=== PATIENT | female | born 1965 | race Caucasian/White ===

== ENCOUNTER 2016-10-18 20:37 | Observation (INO) ==
--- NOTE | 2016-10-18 21:40 | Emergency Department Note ---
Disposition Clinical Impression: Bradycardia Disposition: Admitted As Inpatient Referrals: Unassigned,Provider [Non-Partnered Physician] - Forms: ED Satisfaction Letter Extremity Problem HPI - General Chief complaint: ED Extremity Problem,Nontraumatic Stated complaint: blood clot// Right arm pain Time Seen by Provider: 10/18/16 20:55 Source: patient Limitations: no limitations Nursing Notes Reviewed: Yes Vital Signs Reviewed: Yes - History of Present Illness HPI Narrative: Patient presents with left arm pain. Patient states she was seen at an outside hospital and told that she had a blood clot to elevated d-dimer. Patient is already on Lovenox and so the hospital not see the need to do an ultrasound at time as if patient had a DVT she is already on treatment for that. Patient continues her pain but the family member also noted the patient a fall and her pain did start after that. Patient is unsure if the pain started around afterwards or some other things going on. Patient denies chest pain patient did have some flutter in her head yesterday but that since resolved. Pain Scale: 0 - Related Data Home Medications Medication Instructions Recorded Confirmed Butorphanol Tartrate 10 mg NS BID 09/12/15 05/17/16 Nitroglycerin [Nitrostat] 0.4 mg SL Q5-10MIN PRN 11/27/15 05/17/16 Levothyroxine Sodium [Synthroid] 100 mcg IV DAILY 01/17/16 05/17/16 Previous Rx's Medication Instructions Recorded AcetaZOLAMIDE [Diamox Sequels] 500 mg IV Q12H 30 Days 11/05/15 DiphenhydraMINE [Benadryl] 50 mg IV Q6H 30 Days 11/28/15 Pantoprazole Sodium [Protonix IV] 40 mg IV DAILY 30 Days 11/28/15 CloNIDine Patch [Catapres-Tts] 0.3 mg TD QWEEK #6 patch.tdwk 01/30/16 Ondansetron ODT [Zofran ODT] 4 mg SL Q4HR PRN #7 tab.rapdis 03/17/16 Allergies Allergy/AdvReac Type Severity Reaction Status Date / Time levofloxacin Allergy Intermediate rash, Verified 09/22/16 13:21 itching, redness ceftriaxone [From Rocephin] Allergy Anaphylaxis Verified 09/22/16 13:21 Hydralazine Allergy Hives Verified 09/22/16 13:21 Iodinated Contrast Media - Allergy Hives Verified 09/22/16 13:21 Oral and [Iodinated Contrast Media - IV Dye] ketorolac [From Toradol] Allergy Gastrointestinal Verified 09/22/16 13:21 Upset metoclopramide [From Reglan] Allergy Hives Verified 09/22/16 13:21 midazolam [From Versed] Allergy Agitated Verified 09/22/16 13:21 povidone-iodine Allergy Hives Verified 09/22/16 13:21 [From Betadine] prochlorperazine Allergy Hives Verified 09/22/16 13:21 [From Compazine] soap [From Betadine] Allergy Hives Verified 09/22/16 13:21 Trimethobenzamide Allergy Hives Verified 09/22/16 13:21 [From Tigan] All systems ED: reviewed and negative except as stated. 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 history - Social History Smoking Status: Former smoker Smokeless Tobacco Status: Yes Alcohol use: Reports: none Drug use: Reports: none Physical Exam - General Limitations: no limitations General appearance: alert, in no apparent distress - Head Head exam: atraumatic, normocephalic, normal inspection - Eye Eye exam: Present: normal appearance, PERRL, EOMI - ENT ENT exam: normal exam, normal oropharynx, mucous membranes moist - Neck Neck exam: Present: normal inspection, full ROM, trachea midline - Chest Chest inspection: Present: normal inspection, symmetric chest wall rise - Respiratory Respiratory exam: Present: normal lung sounds bilaterally - Cardiovascular Cardiovascular exam: Present: regular rate, normal rhythm, normal heart sounds - Abdominal Exam Abdominal exam: Present: soft, Non-Tender. Absent: tenderness, distention, guarding, rebound, rigidity - Extremities Exam Extremities exam: Present: other (Left anterior shoulder tenderness to palpation. No gross deformity noted.) - Back Exam Back exam: Present: normal inspection, full ROM. Absent: tenderness - Neurological Exam Neurological exam: Present: alert, oriented X3 - Psychiatric Psychiatric exam: Present: normal affect, normal mood - Skin Skin exam: Present: warm, dry, intact, normal color Course Vital Signs Temperature 98 F 10/18/16 20:45 Pulse Rate 54 10/18/16 20:45 Respiratory Rate 20 10/18/16 20:45 Blood Pressure 101/70 10/18/16 20:45 O2 Sat by Pulse Oximetry 98 10/18/16 20:45 Temperature 98 F 10/18/16 20:45 Pulse Rate 53 10/18/16 23:44 Respiratory Rate 18 10/18/16 23:44 Blood Pressure 123/77 10/18/16 23:44 O2 Sat by Pulse Oximetry 96 10/18/16 23:44 Oxygen Delivery Oxygen Delivery Room Air Extremity Problem, Nontraumati - Differential Diagnosis Likely: cellulitis, superficial thrombophlebitis, deep venous thrombosis, lower extremity edema, compartment syndrome, septic joint - Lab Data Lab results reviewed: Yes I reviewed the patient's lab results. Result diagrams: 10/18/16 22:22 10/18/16 22:22 Lab Results 10/18/16 10/18/16 10/18/16 Range/Units 22:06 22:22 22:22 WBC 6.2 (4.3-11.1) K/mcL RBC 4.23 (3.82-4.97) M/mcL Hgb 12.1 (11.5-15.4) g/dL Hct 35.1 L (35.3-44.9) % MCV 83.0 (83.0-100.0) fL MCH 28.6 (28.0-33.3) pg MCHC 34.5 (31.6-35.5) g/dL RDW 13.8 (11.5-14.5) % Plt Count 248 (140-400) K/mcL MPV 10.9 (9.4-12.4) fL Immature Gran % 0.2 (0-4) % Seg Neutrophils % 40.2 % Lymphocytes % 42.9 % Monocytes % 6.8 % Eosinophils % 9.6 % Basophils % 0.3 % Neutrophils # 2.5 (1.6-8.9) K/mcL Lymphocytes # 2.7 (0.6-4.6) K/mcL Monocytes # 0.4 (0.0-1.3) K/mcL Eosinophils # 0.6 (0.0-0.6) K/mcL Basophils # 0.0 (0.0-0.2) K/mcL APTT 58.7 H (26.0-36.0) Seconds Sodium (136-145) mEq/L Potassium (3.5-4.5) mEq/L Chloride (98-109) mEq/L Carbon Dioxide (19-29) mEq/L BUN (7-20) mg/dL Creatinine (0.57-1.11) mg/dL Est GFR ( Amer) (> 60) Est GFR (Non-Af Amer) (> 60) BUN/Creatinine Ratio (6-26) Glucose (70-99) mg/dL Calculated Osmolality (280-300) Lactic Acid (0.5-2.2) mmol/L Calcium (8.6-10.8) mg/dL Total Bilirubin (0.2-1.2) mg/dL AST (5-34) Units/L ALT (0-55) Units/L Alkaline Phosphatase (38-126) Units/L Troponin I (0-0.03) ng/mL Serum Total Protein (6.0-8.3) g/dL Albumin (3.5-5.0) g/dL Globulin (2.4-3.5) g/dL Albumin/Globulin Ratio (1.1-2.2) Urine Color Yellow (Yellow) Urine Clarity Hazy A (Clear) Urine pH 6.0 (5.0-8.0) pH Units Ur Specific [place] 1.029 H (1.010-1.025) Urine Protein 30 H (Neg-Trace) mg/dL Urine Glucose (UA) Normal (Normal) mg/dL Urine Ketones Negative (Negative) mg/dL Urine Blood Negative (Negative) Urine Nitrite Negative (Negative) Urine Bilirubin Small H (Negative) Urine Urobilinogen Normal (Normal) mg/dL Ur Leukocyte Esterase Small H (Negative) Urine Microscopic RBC 0-3 (0-3) per hpf Urine Microscopic WBC 15-30 H (0-3) per hpf Ur Squamous Epith Cells Many H (None-Few) per lpf Calcium Oxalate Crystal Present Urine Bacteria Few (None-Few) per hpf Hyaline Casts Few (None-Few) per lpf Urine Mucus Few (Few) Ur Culture Indicated? YES A (NO) 10/18/16 10/18/16 10/18/16 Range/Units 22:22 22:22 22:22 WBC (4.3-11.1) K/mcL RBC (3.82-4.97) M/mcL Hgb (11.5-15.4) g/dL Hct (35.3-44.9) % MCV (83.0-100.0) fL MCH (28.0-33.3) pg MCHC (31.6-35.5) g/dL RDW (11.5-14.5) % Plt Count (140-400) K/mcL MPV (9.4-12.4) fL Immature Gran % (0-4) % Seg Neutrophils % % Lymphocytes % % Monocytes % % Eosinophils % % Basophils % % Neutrophils # (1.6-8.9) K/mcL Lymphocytes # (0.6-4.6) K/mcL Monocytes # (0.0-1.3) K/mcL Eosinophils # (0.0-0.6) K/mcL Basophils # (0.0-0.2) K/mcL APTT (26.0-36.0) Seconds Sodium 140 (136-145) mEq/L Potassium 3.1 L (3.5-4.5) mEq/L Chloride 113 H (98-109) mEq/L Carbon Dioxide 18 L (19-29) mEq/L BUN 17 (7-20) mg/dL Creatinine 1.26 H (0.57-1.11) mg/dL Est GFR ( Amer) 55 L (> 60) Est GFR (Non-Af Amer) 45 L (> 60) BUN/Creatinine Ratio 13 (6-26) Glucose 112 H (70-99) mg/dL Calculated Osmolality 292 (280-300) Lactic Acid 0.8 (0.5-2.2) mmol/L Calcium 9.1 (8.6-10.8) mg/dL Total Bilirubin 0.2 (0.2-1.2) mg/dL AST 32 (5-34) Units/L ALT 31 (0-55) Units/L Alkaline Phosphatase 112 (38-126) Units/L Troponin I 0.00 (0-0.03) ng/mL Serum Total Protein 6.7 (6.0-8.3) g/dL Albumin 3.3 L (3.5-5.0) g/dL Globulin 3.4 (2.4-3.5) g/dL Albumin/Globulin Ratio 1.0 L (1.1-2.2) Urine Color (Yellow) Urine Clarity (Clear) Urine pH (5.0-8.0) pH Units Ur Specific [place] (1.010-1.025) Urine Protein (Neg-Trace) mg/dL Urine Glucose (UA) (Normal) mg/dL Urine Ketones (Negative) mg/dL Urine Blood (Negative) Urine Nitrite (Negative) Urine Bilirubin (Negative) Urine Urobilinogen (Normal) mg/dL Ur Leukocyte Esterase (Negative) Urine Microscopic RBC (0-3) per hpf Urine Microscopic WBC (0-3) per hpf Ur Squamous Epith Cells (None-Few) per lpf Calcium Oxalate Crystal Urine Bacteria (None-Few) per hpf Hyaline Casts (None-Few) per lpf Urine Mucus (Few) Ur Culture Indicated? (NO) - Radiology Data Radiology results reviewed: Yes I reviewed the patient's radiology results. Head CT 10/18/16 21:17 IMPRESSION: No acute intracranial abnormality. D/ / Kp Lynn MD / Kp Lynn MD Interpreting Provider: Kp Lynn MD Shoulder X-Ray 10/18/16 21:18 IMPRESSION: No acute osseous abnormality. D/ / 10/18/2016 22:12:56 Vimal Sadler MD / [facility] Interpreting Provider: Vimal Sadler MD Chest X-Ray 10/18/16 22:01 IMPRESSION: No acute findings D/ / Evelyn Menchaca MD / Evelyn Menchaca MD Interpreting Provider: Evelyn Menchaca MD - EKG Data EKG attestation: Yes I reviewed and interpreted this EKG. EKG shows normal: sinus rhythm Rate: bradycardia Rhythm: NSR Critical Care Time Total Critical Care Time: 30 Attestation: Critical care performed: Time is exclusive of separately billable procedures. Time includes: direct patient care, patient reassessment, coordination of patient care, interpretation of data (laboratory data, radiology data, and respiratory data), review of patient's medical records, medical consultation and documentation of patient care. Procedures included in critical care time: Procedures excluded from critical care time:
[2016-10-18] MEDS ORDERED: 0.9 % Sodium Chloride 500 ML IVC ONE (22:04)
[2016-10-18 22:17] LABS: Bilirubin,Urine Small (Negative); Blood,Urine Negative (Negative); Color,Urine Yellow (Yellow); Glucose,Urine (UA) Normal (Normal); Ketones,Urine Negative (Negative); Leukocyte Esterase,Urine Small (Negative); Nitrite,Urine Negative (Negative); Protein,Urine 30 mg/dL (Neg-Trace); Specific Gravity,Urine 1.029 (1.010-1.025); Urobilinogen,Urine Normal (Normal)
[2016-10-18 22:19] LABS: Hyaline Casts,Urine Few per lpf (None-Few); Squamous Epithelial Cell,Urine Many per lpf (None-Few); WBC,Urine 15-30 per hpf (0-3)
[2016-10-18 22:20] LABS: Clarity,Urine Hazy (Clear)
[2016-10-18 22:28] LABS: Basophils % 0.3 %; Eosinophils # 0.6 K/mcL (0.0-0.6); Eosinophils % 9.6 %; Hematocrit 35.1 % (35.3-44.9); Hemoglobin 12.1 g/dL (11.5-15.4); Immature Granulocytes % 0.2 % (0-4); Lymphocytes # 2.7 K/mcL (0.6-4.6); Lymphocytes % 42.9 %; Mean Corpuscular HGB Conc 34.5 g/dL (31.6-35.5); Mean Corpuscular Hemoglobin 28.6 pg (28.0-33.3); Mean Platelet Volume 10.9 fL (9.4-12.4); Monocytes # 0.4 K/mcL (0.0-1.3); Monocytes % 6.8 %; Neutrophils # 2.5 K/mcL (1.6-8.9); Platelet Count 248 K/mcL (140-400); Red Blood Count 4.23 M/mcL (3.82-4.97); Red Cell Distribution Width 13.8 % (11.5-14.5); Segmented Neutrophils % 40.2 %
[2016-10-18 22:35] LABS: Calcium Oxalate Crystals,Urine Present; RBC,Urine 0-3 per hpf (0-3)
[2016-10-18 22:36] LABS: Bacteria,Urine Few per hpf (None-Few); Mucus,Urine Few (Few)
[2016-10-18 22:43] LABS: Albumin 3.3 g/dL (3.5-5.0); Bilirubin,Total 0.2 mg/dL (0.2-1.2); Calcium 9.1 mg/dL (8.6-10.8); Potassium 3.1 mEq/L (3.5-4.5); Total Protein 6.7 g/dL (6.0-8.3)
[2016-10-18 22:44] LABS: Globulin 3.4 g/dL (2.4-3.5)
[2016-10-18] MEDS ORDERED: Potassium Effervescent 25 MEQ TABLET.EFF PO ONE (23:11)
--- NOTE | 2016-10-18 23:55 | Internal Med History&Physical ---
Date of Encounter: 10/18/16 Time of Encounter: 23:55 Assessment and Plan (1) Bradycardia Current visit: Yes Status: Acute ymptomatic bradycardia likely relat to butorphanol and clonidine Hold butorphanol, may start morphine IV Decrease dose of clonidine from 2 patches of 0.3 mg every week down to only 1 patch Monitor closely with telemetry, fall precautions, consider cardiology consult if not improving (2) PICC (peripherally inserted central catheter) in place Current visit: Yes Status: Acute Order a venous Doppler from the left upper extremity May discontinue Lovenox if no DVT is found (3) Anxiety Current visit: No Status: Acute (4) Caloric malnutrition Current visit: No Status: Acute Nutrition consult to restart tube feeds (5) Gastroparesis Current visit: No Status: Acute (6) Jejunostomy tube present Current visit: No Status: Acute (7) Sphincter of Oddi dysfunction Current visit: No Status: Acute (8) Hypertension Current visit: Yes Status: Acute Only clonidine 0.3 mg every week transdermal Protonix IV for GI prophylaxis and Lovenox for DVT prophylaxis, the patient will be admitted for observation. Full code. Time spent on this admission 40 minutes. High risk of falling Qualifiers: Hypertension type: essential hypertension Qualified Code(s): I10 - Essential (primary) hypertension Internal Medicine - H&P: HPI Chief complaint: left arm pain and dizziness Admitted From: Emergency Dept History of present illness: Ms. 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 Recently she had 1 right upper chest port removed. The patient has been feeling dizzy for the past 2 days, she says that she was restarted on to clonidine patches 0.3 mg each last , she has been feeling dizzy and fell once. The patient was found to be bradycardic at the emergency room dropping down to the 40s. This was confirmed by an EKG. The patient also has been on butorphanol nasal for pain, it is known that both medications can cause bradycardia. The chest x-ray looks unremarkable CT scan of the head is unremarkable. The patient was started on Lovenox at a different ER due to concerns of clots in her left lower. The creatinine has increased from 0.97 up to 1.26, potassium is 3.1. Past Med Surg Social Fam HX - Past Medical History Medical history: cancer (Endometrial), hypertension, peripheral artery disease, seizures, SVT, thyroid disease (Adelia's), other (Pseudotumor cerebri, GERD, hypertension, sphincter of Oddi dysfunction, severe gastroparesis, Escherichia coli septicemia, DVTs, CVAs, anxiety, personality disorder) Psychiatric history: no psych history - Past Surgical History Surgical History: appendectomy, cholecystectomy, hysterectomy, other (Gastric bypass, J-tube placement, port removed from chest, exploratory celiotomy) - Social History Smoking Status: Former smoker Smokeless Tobacco Status: Yes Alcohol use: none Drug use: none - Family History Mother Hx Family Endocrine Disorder: Yes (DM) Father Adopted: No Hx Family Endocrine Disorder: Yes (DM) - Additional Family History Additional family history: Father and mother with diabetes Internal Medicine - H&P: Meds Butorphanol Tartrate 10 mg NS BID 09/12/15 [History] AcetaZOLAMIDE [Diamox Sequels] 500 mg IV Q12H 30 Days 11/05/15 [Rx] Nitroglycerin [Nitrostat] 0.4 mg SL Q5-10MIN PRN 11/27/15 [History] DiphenhydraMINE [Benadryl] 50 mg IV Q6H 30 Days 11/28/15 [Rx] Pantoprazole Sodium [Protonix IV] 40 mg IV DAILY 30 Days 11/28/15 [Rx] Levothyroxine Sodium [Synthroid] 100 mcg IV DAILY 01/17/16 [History] CloNIDine Patch [Catapres-Tts] 0.3 mg TD QWEEK #6 patch.tdwk 01/30/16 [Rx] Ondansetron ODT [Zofran ODT] 4 mg SL Q4HR PRN #7 tab.rapdis 03/17/16 [Rx] Allergies levofloxacin Allergy (Intermediate, Verified 09/22/16 13:21) rash, itching, redness ceftriaxone [From Rocephin] Allergy (Verified 09/22/16 13:21) Anaphylaxis Hydralazine Allergy (Verified 09/22/16 13:21) Hives Iodinated Contrast Media - Oral and [Iodinated Contrast Media - IV Dye] Allergy (Verified 09/22/16 13:21) Hives ketorolac [From Toradol] Allergy (Verified 09/22/16 13:21) Gastrointestinal Upset metoclopramide [From Reglan] Allergy (Verified 09/22/16 13:21) Hives midazolam [From Versed] Allergy (Verified 09/22/16 13:21) Agitated povidone-iodine [From Betadine] Allergy (Verified 09/22/16 13:21) Hives prochlorperazine [From Compazine] Allergy (Verified 09/22/16 13:21) Hives soap [From Betadine] Allergy (Verified 09/22/16 13:21) Hives Trimethobenzamide [From Tigan] Allergy (Verified 09/22/16 13:21) Hives All Systems PM: A 10-system review of systems was performed and is negative for pertinent findings except as documented above in the HPI. Review of systems: Feels dizzy, complains of left arm pain, denies any abdominal pain, no shortness of breath, chest pain, other systems out of the ten reviewed were negative - Constitutional Vitals: Temp Pulse Resp BP Pulse Ox 98 F 53 18 123/77 96 10/18/16 20:45 10/18/16 23:44 10/18/16 23:44 10/18/16 23:44 10/18/16 23:44 - Head Head exam: Present: atraumatic, normocephalic - Eye Eye exam: Present: PERRL, conjuntiva pink, sclera anicteric Pupils: Present: PERRL - Neck Neck exam general surgery: Present: supple, trachea midline. Absent: lymphadenopathy - Respiratory Respiratory exam: Present: CTAB. Absent: accessory muscle use, rales, rhonchi, wheezes - Cardiovascular Cardiovascular exam: Present: RRR, +S1, +S2. Absent: diastolic murmur, gallop, rubs, systolic murmur - GI/Abdominal GI/Abdominal exam: Present: diminished bowel sounds (J-tube in place), normal bowel sounds, soft, no peritoneal signs. Absent: distended, tenderness - Extremities Exam Extremities exam: Present: warm, radial pulses palpable and symetrical. Absent : calf tenderness, cyanotic, pedal edema - Neurological Exam Neurological exam: Present: CN II-XII intact, oriented X3, no focal deficits. Absent: pronater drift, facial droop, speech deficit - Skin Skin exam: Present: dry, intact Additional comments: Left upper extremity PICC line with some swelling in the left upper arm, has 1 pitting edema in both lower extremities Internal Med - H&P Results - Labs CBC & Chem 7: 10/18/16 22:22 10/18/16 22:22 Labs: Short CBC 10/18/16 Range/Units 22:22 WBC 6.2 (4.3-11.1) K/mcL Hgb 12.1 (11.5-15.4) g/dL Hct 35.1 L (35.3-44.9) % Plt Count 248 (140-400) K/mcL Neutrophils # 2.5 (1.6-8.9) K/mcL BMP 10/18/16 22:22 Sodium 140 Potassium 3.1 L Chloride 113 H Carbon Dioxide 18 L BUN 17 Creatinine 1.26 H Glucose 112 H Calcium 9.1 Cardiac Enzymes 10/18/16 Range/Units 22:22 Troponin I 0.00 (0-0.03) ng/mL Liver Function 10/18/16 Range/Units 22:22 Total Bilirubin 0.2 (0.2-1.2) mg/dL AST 32 (5-34) Units/L ALT 31 (0-55) Units/L Alkaline Phosphatase 112 (38-126) Units/L Albumin 3.3 L (3.5-5.0) g/dL Urine 10/18/16 Range/Units 22:06 Urine Color Yellow (Yellow) Urine Clarity Hazy A (Clear) Urine pH 6.0 (5.0-8.0) pH Units Ur Specific [place] 1.029 H (1.010-1.025) Urine Protein 30 H (Neg-Trace) mg/dL Urine Glucose (UA) Normal (Normal) mg/dL - Impressions ITS Impressions Head CT 10/18/16 21:17 IMPRESSION: No acute intracranial abnormality. D/ / Kp Lynn MD / Kp Lynn MD Interpreting Provider: Kp Lynn MD Shoulder X-Ray 10/18/16 21:18 IMPRESSION: No acute osseous abnormality. D/ / 10/18/2016 22:12:56 Vimal Sadler MD / [facility] Interpreting Provider: Vimal Sadler MD Chest X-Ray 10/18/16 22:01 IMPRESSION: No acute findings D/ / Evelyn Menchaca MD / Evelyn Menchaca MD Interpreting Provider: Evelyn Menchaca MD
[2016-10-18] MEDS ORDERED: *HR* Morphine 2 MG/ML SYRINGE IV ONE (23:56)
[2016-10-19] MEDS ORDERED: Azithromycin 250 MG TABLET PO ONE (00:32)
[2016-10-19] MEDS ORDERED: Naloxone 0.4 MG/ML INJ IVP PRN (00:34)
[2016-10-19] MEDS ORDERED: Ondansetron 4 MG/2 ML VIAL IVP PRN (00:34)
[2016-10-19] MEDS ORDERED: CloNIDine Patch 0.3 MG PATCH (WEEKLY) TD SCH (00:45)
[2016-10-19] MEDS: *HR* Morphine 2 MG/ML SYRINGE IVP PRN ×6 (02:35→22:40)
[2016-10-19 05:37] LABS: BUN/Creatinine Ratio 15 (6-26); Blood Urea Nitrogen 15 mg/dL (7-20); Calcium 9.1 mg/dL (8.6-10.8); Carbon Dioxide 20 mEq/L (19-29); Chloride 115 mEq/L (98-109); Glucose 96 mg/dL (70-99); Osmolality,Calculated 291 (280-300); Sodium 140 mEq/L (136-145); eGFR For African Americans > 60 (> 60); eGFR For Non-African Americans 58 (> 60)
[2016-10-19 05:40] LABS: Potassium 4.4 mEq/L (3.5-4.5)
[2016-10-19] MEDS ORDERED: 0.9 % Sodium Chloride 1,000 ML ONE (08:02)
[2016-10-19] MEDS: Pantoprazole 40 MG VIAL IVP SCH (08:24)
[2016-10-19] MEDS ORDERED: *HR* Enoxaparin 80 MG/0.8 ML SYRINGE SQ SCH (09:00)
[2016-10-19] MEDS: Levothyroxine Sodium 100 MCG VIAL IV SCH (09:46)
[2016-10-19] MEDS: 0.9 % Sodium Chloride 1,000 ML IVC SCH ×2 (09:47→22:42)
--- NOTE | 2016-10-19 11:13 | Internal Med Progress Note ---
Date of Encounter: 10/19/16 Time of Encounter: 09:00 - Assessment and plan (1) Bradycardia Current Visit: Yes Status: Acute Assessment and plan: Etiology is undetermined. EKG and the monitoring shows a sinus bradycardia. Heart rate 40 to 50s. The patient tolerated well. - Consider medication caused bradycardia, hold Butophanol and decrease dose of clonidine. - Continue closely monitoring patient in telemetry. - Consider cardiology consult if bradycardia persists. - Patient denies chest pain or shortness of breath. (2) Left arm swelling Current Visit: Yes Status: Acute Assessment and plan: US DOPPLER shows negative for DVT. Swelling has resolved. PICC line functions well. (3) S/P jejunostomy Current Visit: No Status: Acute Assessment and plan: On J-tube feeding. (4) Anxiety Current Visit: No Status: Acute Assessment and plan: Continue home medications (5) Caloric malnutrition Current Visit: No Status: Acute Assessment and plan: On tube feeding. Nutrition consult for further tube feeding management. (6) DVT prophylaxis Current Visit: No Status: Acute Assessment and plan: Lovenox subcutaneously (7) Gastroparesis Current Visit: No Status: Acute Assessment and plan: On J-tube and the tube feeding (8) Sphincter of Oddi dysfunction Current Visit: No Status: Acute Assessment and plan: Pt has J-Tube placed by Dr Dc (9) PICC (peripherally inserted central catheter) in place Current Visit: Yes Status: Acute (10) Hypertension Current Visit: Yes Status: Acute Qualifiers: Hypertension type: essential hypertension Qualified Code(s): I10 - Essential (primary) hypertension - Time Spent With Patient 25 - 35 minutes - Subjective Interval history: Patient is a 45-year-old female admitted for left arm swelling to rule DVT. She was also found bradycardia with dizziness in emergency room. Past medical history is significant for gastroparesis, Oddi sphincter dysfunction on J-tube, hypertension. Patient was seen and examined. She is awake alert oriented 3. No dizziness or lightheaded. Left arm swelling has improved. Her PICC line left arm function well with good blood return. THE DOPPLER SHOWS NEGATIVE FOR DVT. WE will change lovenox to prophylaxis dose. Still help bradycardia with heart rate 40-50. Will continue close monitoring patient, no further intervention because patient is asymptomatic. - Constitutional Vitals: Temp Pulse Resp BP Pulse Ox 97.9 F 45 14 129/85 99 10/19/16 06:52 10/19/16 06:52 10/19/16 06:52 10/19/16 06:52 10/19/16 06:52 General appearance: Present: A&O X 3, no acute distress, answers questions appropriately - Head Head exam: Present: atraumatic, normocephalic - Eye Eye exam: Present: PERRL, conjuntiva pink, sclera anicteric Pupils: Present: PERRL - Neck Neck exam general surgery: Present: supple, trachea midline. Absent: lymphadenopathy - Respiratory Respiratory exam: Present: CTAB. Absent: accessory muscle use, rales, rhonchi, wheezes - Cardiovascular Cardiovascular exam: Present: bradycardia, RRR, +S1, +S2. Absent: diastolic murmur, gallop, rubs, systolic murmur - GI/Abdominal GI/Abdominal exam: Present: normal bowel sounds, soft, no peritoneal signs. Absent: distended, tenderness - Extremities Exam Extremities exam: Present: warm, radial pulses palpable and symetrical. Absent : calf tenderness, cyanotic, pedal edema - Neurological Exam Neurological exam: Present: CN II-XII intact, oriented X3, no focal deficits. Absent: pronater drift, facial droop, speech deficit - Skin Skin exam: Present: dry, intact Internal Medicine: Result - Labs CBC & Chem 7: 10/18/16 22:22 10/19/16 05:10 Labs: BMP 10/19/16 05:10 Sodium 140 Potassium 4.4 D Chloride 115 H Carbon Dioxide 20 BUN 15 Creatinine 1.01 Glucose 96 Calcium 9.1 Consult Discharge Plan - Plan Referrals: NO,PCP [Primary Care Provider] -
[2016-10-20] MEDS: *HR* Morphine 2 MG/ML SYRINGE IVP PRN ×7 (01:40→21:29)
[2016-10-20 05:05] LABS: Basophils % 0.2 %; Eosinophils # 0.5 K/mcL (0.0-0.6); Eosinophils % 12.1 %; Hematocrit 29.6 % (35.3-44.9); Lymphocytes # 1.8 K/mcL (0.6-4.6); Lymphocytes % 42.4 %; Mean Corpuscular HGB Conc 34.1 g/dL (31.6-35.5); Mean Corpuscular Volume 85.1 fL (83.0-100.0); Mean Platelet Volume 11.5 fL (9.4-12.4); Monocytes # 0.3 K/mcL (0.0-1.3); Monocytes % 8.2 %; Neutrophils # 1.5 K/mcL (1.6-8.9); Platelet Count 179 K/mcL (140-400); Red Blood Count 3.48 M/mcL (3.82-4.97); Red Cell Distribution Width 13.9 % (11.5-14.5); Segmented Neutrophils % 37.1 %
[2016-10-20 05:11] LABS: Hemoglobin 10.1 g/dL (11.5-15.4)
[2016-10-20 05:20] LABS: BUN/Creatinine Ratio 15 (6-26); Blood Urea Nitrogen 11 mg/dL (7-20); Carbon Dioxide 19 mEq/L (19-29); Chloride 116 mEq/L (98-109); Glucose 85 mg/dL (70-99); Magnesium 1.3 mg/dL (1.6-2.6); Osmolality,Calculated 289 (280-300); Sodium 140 mEq/L (136-145); eGFR For African Americans > 60 (> 60); eGFR For Non-African Americans > 60 (> 60)
[2016-10-20 05:23] LABS: Calcium 7.7 mg/dL (8.6-10.8); Potassium 3.2 mEq/L (3.5-4.5)
[2016-10-20] MEDS: *HR* Enoxaparin 40 MG/0.4 ML SYRINGE SQ SCH (05:59)
[2016-10-20] MEDS ORDERED: Potassium Chloride 40 MEQ, Lidocaine 1% 2 ML in D5% in Water 500 ML IVPB ONE (07:22)
[2016-10-20] MEDS ORDERED: Magnesium Sulfate 2 GM in D5% in Water 100 ML IVPB ONE (07:22)
[2016-10-20] MEDS: Pantoprazole 40 MG VIAL IVP SCH (08:17)
[2016-10-20] MEDS: Levothyroxine Sodium 100 MCG VIAL IV SCH (08:17)
--- NOTE | 2016-10-20 09:59 | Cardiology Consult Note ---
Date of Encounter: 10/20/16 Time of Encounter: 09:51 Assessment and Plan (1) Bradycardia Current Visit: Yes Status: Acute Sinus bradycardia No symptoms at rest. Symptoms when attempt to ambulate Clonidine has been reduced here in the hospital HR has ranged from 44-56 during stay. BP is not markedly elevated. Cushings triad not present. Will obtain TSH, orthostatics, and ambulate with telemetry to see max HR. (2) Prolonged Q-T interval on ECG Current Visit: Yes Status: Acute Mild prolongation of QTc (418ms) Patient reports a history of "QT syndrome" Will refer at outpatient to pr intern Recommend avoiding QT prolonging agents while in hospital Discussion w patient/family: The assessment and plan as outlined above was discussed with the patient and/or family members who expressed understanding and agreement. All questions were answered. Thank you for involving us in the care of your patient. Please call with any questions. History of Present Illness Consult date: 10/20/16 Consult reason: Sinus bradycardia Chief complaint: Pre-syncope History of present illness: Ms. Atwood is a 50 year old female with a complicated PMH. 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 Unable to take PO due to Sphincter of oddi dysfunction. Had been using a power port for her home medications but developed bacteremia from an infected line. Went to [facility] and completed 2 weeks of antibiotics and had her line replaced by a PICC line on the left. After it was placed she developed continuous left arm discomfort and presyncope when standing to walk. She had a prior ER visit where she reports she was started on Lovenox due to a DVT possibly related to her PICC line. She presented to our ER due to persistent pain and worsening pre-syncope. Her HR at in the 40's at that time and was admitted due to symptomatic bradycardia. She is on clonidine patches .6mg Qweek. She is also on Stadol for chronic pain. The clonidine has recently been changed while she was at [facility]. She reports her normal HR is in the 80's. She has been taking Diamox due to her pseudotumor. No recent changes. No difficulty with coordination. Symptoms are resolved at rest. Past Med Surg Social Fam HX - Past Medical History Medical history: cancer, hypertension, peripheral artery disease, seizures, SVT , thyroid disease, other Psychiatric history: no psych history - Past Surgical History Surgical History: appendectomy, cholecystectomy, hysterectomy, other - Social History Smoking Status: Former smoker Smokeless Tobacco Status: Yes Alcohol use: none Drug use: none - Family History Mother Name: Nely Babcock Age: 71 Family Member Ethnicity: Non- Living Status: Still Living Hx Family Endocrine Disorder: Yes (DM II) Father Adopted: [place]: Isaac Babcock Age: 78 Family Member Ethnicity: Non- Living Status: Still Living Hx Family Cancer: Yes (Prostate ca) Hx Family Endocrine Disorder: Yes (DM II) Medications and Allergies Butorphanol Tartrate 10 mg NS BID 09/12/15 [History] AcetaZOLAMIDE [Diamox Sequels] 500 mg IV Q12H 30 Days 11/05/15 [Rx] DiphenhydraMINE [Benadryl] 50 mg IV Q6H 30 Days 11/28/15 [Rx] Pantoprazole Sodium [Protonix IV] 40 mg IV DAILY 30 Days 11/28/15 [Rx] Levothyroxine Sodium [Synthroid] 100 mcg IV DAILY 01/17/16 [History] CloNIDine Patch [Catapres-Tts] 0.3 mg TD QWEEK #6 patch.tdwk 01/30/16 [Rx] Lovenox *PHARMACY WT BASED* 10/19/16 [History] Allergies levofloxacin Allergy (Intermediate, Verified 10/19/16 12:43) rash, itching, redness ceftriaxone [From Rocephin] Allergy (Verified 10/19/16 12:43) Anaphylaxis Hydralazine Allergy (Verified 10/19/16 12:43) Hives Iodinated Contrast Media - Oral and [Iodinated Contrast Media - IV Dye] Allergy (Verified 10/19/16 12:43) Hives ketorolac [From Toradol] Allergy (Verified 10/19/16 12:43) Gastrointestinal Upset metoclopramide [From Reglan] Allergy (Verified 10/19/16 12:43) Hives midazolam [From Versed] Allergy (Verified 10/19/16 12:43) Agitated piperacillin [From Zosyn] Allergy (Verified 10/19/16 12:43) Rash povidone-iodine [From Betadine] Allergy (Verified 10/19/16 12:43) Hives prochlorperazine [From Compazine] Allergy (Verified 10/19/16 12:43) Hives soap [From Betadine] Allergy (Verified 10/19/16 12:43) Hives tazobactam [From Zosyn] Allergy (Verified 10/19/16 12:43) Rash Trimethobenzamide [From Tigan] Allergy (Verified 10/19/16 12:43) Hives All Systems Review: A 10-system review of systems was performed and is negative for pertinent findings except as documented above in the HPI. - Constitutional Constitutional: no fever(s), no frequent falls, no headache(s) - EENT Eyes: no blurred vision, no loss of vision Nose, mouth and throat: no sore throat - Cardiovascular Cardiovascular: chest pain at rest (occasional substernal sharp momentary pain. Asymptomatic currently.), slow heart rate, no diaphoresis, no leg edema, no palpitations - Respiratory Respiratory: no cough, no dyspnea - Gastrointestinal Gastrointestinal: no abdominal pain - Integumentary Integumentary: no rash - Neurological Neurological: no focal weakness, no loss of vision, no numbness Physical Examination Vital Signs, Last 4 Hours Temp Pulse Resp BP Pulse Ox 10/20/16 08:59 98.5 F 52 18 138/89 100 10/20/16 07:00 50 General: Conversant, No Apparent Distress HEENT: Atraumatic, Mucus Membranes Moist Neck: No JVD Cardiac: Reg Rate and Rhythm, Normal S1 and S2, No Murmur Lungs: Normal Breath Sounds Neuro: Alert and responsive, No focal deficits noted Abdomen: Soft Skin: No rashes noted on visualized skin Musculoskeletal: Other (Well healing power port removal incision) Extremities: No Cyanosis, Normal Pulses, Other (Mild left arm edema present) Results 10/20/16 04:35 10/20/16 04:35 Lab Results 10/20/16 10/20/16 04:35 04:35 WBC 4.1 L Hgb 10.1 L D Hct 29.6 L Plt Count 179 Sodium 140 Potassium 3.2 L D Chloride 116 H Carbon Dioxide 19 BUN 11 Creatinine 0.74 Glucose 85 Calcium 7.7 L D Magnesium 1.3 L Consult Discharge Plan - Plan Referrals: NO,PCP [Primary Care Provider] -
[2016-10-20 10:24] LABS: Thyroid Stimulating Hormone 0.038 mcIU/mL (0.350-4.840)
[2016-10-20] MEDS: 0.9 % Sodium Chloride 1,000 ML IVC SCH (11:44)
[2016-10-20] MEDS: SODIUM CHLORIDE 0.9% IVPB SCH ×2 (11:45→21:48)
[2016-10-20] MEDS: ACETAZOLAMIDE IVPB SCH ×2 (11:45→21:48)
--- NOTE | 2016-10-20 13:37 | Internal Med Progress Note ---
Date of Encounter: 10/20/16 Time of Encounter: 09:00 - Assessment and plan (1) Bradycardia Current Visit: Yes Status: Acute Assessment and plan: Etiology is undetermined. EKG and the monitoring shows a sinus bradycardia. Heart rate 40 to 50s. - Persiste bradycardia, sinus rhythm, will ask for cardio consult - Continue closely monitoring patient in telemetry. - Echo placed by cardio. - Patient denies chest pain or shortness of breath. (2) Left arm swelling Current Visit: Yes Status: Acute Assessment and plan: US DOPPLER shows negative for DVT. Swelling has resolved. PICC line functions well. (3) S/P jejunostomy Current Visit: No Status: Acute Assessment and plan: On J-tube feeding. (4) Anxiety Current Visit: No Status: Acute Assessment and plan: Continue home medications (5) Caloric malnutrition Current Visit: No Status: Acute Assessment and plan: On tube feeding. Nutrition consult for further tube feeding management. (6) DVT prophylaxis Current Visit: No Status: Acute Assessment and plan: Lovenox subcutaneously (7) Gastroparesis Current Visit: No Status: Acute Assessment and plan: On J-tube and the tube feeding (8) Sphincter of Oddi dysfunction Current Visit: No Status: Acute Assessment and plan: Pt has J-Tube placed by Dr Dc (9) PICC (peripherally inserted central catheter) in place Current Visit: Yes Status: Acute (10) Hypertension Current Visit: Yes Status: Acute Assessment and plan: Continue home med, decreased clonidine dose, BP stable. Monitor BP Qualifiers: Hypertension type: essential hypertension Qualified Code(s): I10 - Essential (primary) hypertension - Subjective Interval history: Patient is a 45-year-old female admitted for left arm swelling to rule DVT. She was also found bradycardia with dizziness in emergency room. Past medical history is significant for gastroparesis, Oddi sphincter dysfunction on J-tube, hypertension. Patient was seen and examined. She is awake alert oriented 3. No dizziness or lightheaded at rest. Persist sinus bradycardia, symptomatic on exertion. Pt mentioned she had syncope before presenting to ER. Cardio consult called and input appreciated. Continue closely monitoring, f/u Echo. - Constitutional Vitals: Temp Pulse Resp BP Pulse Ox 98.3 F 51 18 120/81 96 10/20/16 12:00 10/20/16 12:00 10/20/16 12:00 10/20/16 12:00 10/20/16 12:00 General appearance: Present: A&O X 3, no acute distress, answers questions appropriately - Head Head exam: Present: atraumatic, normocephalic - Eye Eye exam: Present: PERRL, conjuntiva pink, sclera anicteric Pupils: Present: PERRL - Neck Neck exam general surgery: Present: supple, trachea midline. Absent: lymphadenopathy - Respiratory Respiratory exam: Present: CTAB. Absent: accessory muscle use, rales, rhonchi, wheezes - Cardiovascular Cardiovascular exam: Present: RRR, +S1, +S2. Absent: diastolic murmur, gallop, rubs, systolic murmur - GI/Abdominal GI/Abdominal exam: Present: normal bowel sounds, soft, no peritoneal signs. Absent: distended, tenderness - Extremities Exam Extremities exam: Present: warm, radial pulses palpable and symetrical. Absent : calf tenderness, cyanotic, pedal edema - Neurological Exam Neurological exam: Present: CN II-XII intact, oriented X3, no focal deficits. Absent: pronater drift, facial droop, speech deficit - Skin Skin exam: Present: dry, intact Internal Medicine: Result - Labs CBC & Chem 7: 10/20/16 04:35 10/20/16 04:35 Labs: Short CBC 10/20/16 Range/Units 04:35 WBC 4.1 L (4.3-11.1) K/mcL Hgb 10.1 L D (11.5-15.4) g/dL Hct 29.6 L (35.3-44.9) % Plt Count 179 (140-400) K/mcL Neutrophils # 1.5 L (1.6-8.9) K/mcL BMP 10/20/16 04:35 Sodium 140 Potassium 3.2 L D Chloride 116 H Carbon Dioxide 19 BUN 11 Creatinine 0.74 Glucose 85 Calcium 7.7 L D Consult Discharge Plan - Plan Referrals: NO,PCP [Primary Care Provider] -
--- NOTE | 2016-10-20 14:12 | Venous Imaging Report ---
UE Venous Duplex Patient Name:Angelique Atwood Order Number:[id number] Procedure Date:10/19/2016 Date:1965Age:50 yrs Gender:Female Location:[facility] Room #: 2N05 Lithographic Camera Operator:Hardy Castellanos RVT, RDCS Referring MD:Lucas Hernandez MD automated cutting machine operator:None Reading MD:Pan Smith MD Primary Indications:Swelling Secondary Indications: Risk Factors Yes/No Hx of DVT Yes Anticoagulants No Hx of Chemotherapy No Impressions: Normal left upper extremity deep and superficial venous exam. Normal contralateral subclavian vein. Recommendations: After imaging the patient returned to their room. Test completed on 10/19/2016 at 10:04:00 am. Critical findings reported to AFRICA Dawkins in person at 10:05:00 am on 10/19/2016 by Hardy Castellanos RVT, RDCS. Findings Venous Duplex Results: Right: Venous imaging of the upper extremity reveals full patency and normal vessel compressibility of the right subclavian. Doppler signals in the evaluated veins were normal. Left: Venous imaging of the upper extremity reveals full patency and normal vessel compressibility of the left jugular, left subclavian, left axillary, left brachial, left cephalic, left basilic, left radial and left ulnar. Doppler signals in the evaluated veins were normal. Prior Study: No prior study available for comparison. Upper Extremity Venous Duplex Side Vein Compress Spontaneous Flow Augment Left Jugular Normal Yes Phasic Yes Left Subclavian Normal Yes Phasic Yes Left Axillary Normal Yes Phasic Yes Left Brachial Normal Yes Phasic Yes Left Cephalic Normal Yes Phasic Yes Left Basilic Normal Yes Phasic Yes Left Radial Normal Yes Phasic Yes Left Ulnar Normal Yes Phasic Yes Right Subclavian Normal Yes Phasic Yes Updated by Pan Smith MD on 10/20/2016 2:06:09 PM electronically signed on 10/20/2016 2:06:28 PM with status of Final
[2016-10-20] MEDS ORDERED: Magnesium Sulfate 2 GM in D5% in Water 100 ML IVPB PRN (14:56)
[2016-10-20 20:00] LABS: Magnesium 1.9 mg/dL (1.6-2.6); Potassium 3.8 mEq/L (3.5-4.5)
--- NOTE | 2016-10-20 21:27 | Electrocardiograph Report ---
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
[2016-10-21] MEDS: *HR* Morphine 2 MG/ML SYRINGE IVP PRN ×6 (01:45→19:54)
[2016-10-21 05:12] LABS: Basophils % 0.3 %; Eosinophils # 0.6 K/mcL (0.0-0.6); Eosinophils % 15.4 %; Hematocrit 33.5 % (35.3-44.9); Hemoglobin 11.3 g/dL (11.5-15.4); Lymphocytes # 1.8 K/mcL (0.6-4.6); Lymphocytes % 46.6 %; Mean Corpuscular HGB Conc 33.7 g/dL (31.6-35.5); Mean Corpuscular Hemoglobin 28.7 pg (28.0-33.3); Mean Platelet Volume 11.8 fL (9.4-12.4); Monocytes # 0.3 K/mcL (0.0-1.3); Monocytes % 6.8 %; Neutrophils # 1.2 K/mcL (1.6-8.9); Platelet Count 201 K/mcL (140-400); Red Blood Count 3.94 M/mcL (3.82-4.97); Red Cell Distribution Width 13.6 % (11.5-14.5); Segmented Neutrophils % 30.9 %
[2016-10-21] MEDS: *HR* Enoxaparin 40 MG/0.4 ML SYRINGE SQ SCH (05:25)
[2016-10-21 05:27] LABS: BUN/Creatinine Ratio 12 (6-26); Blood Urea Nitrogen 11 mg/dL (7-20); Calcium 8.8 mg/dL (8.6-10.8); Carbon Dioxide 22 mEq/L (19-29); Chloride 110 mEq/L (98-109); Glucose 106 mg/dL (70-99); Magnesium 2.6 mg/dL (1.6-2.6); Osmolality,Calculated 286 (280-300); Potassium 4.3 mEq/L (3.5-4.5); Sodium 138 mEq/L (136-145); eGFR For African Americans > 60 (> 60); eGFR For Non-African Americans > 60 (> 60)
--- NOTE | 2016-10-21 06:42 | Electrocardiograph Report ---
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
[2016-10-21] MEDS: Levothyroxine Sodium 100 MCG VIAL IV SCH (07:49)
[2016-10-21] MEDS: Pantoprazole 40 MG VIAL IVP SCH (07:49)
[2016-10-21] MEDS: SODIUM CHLORIDE 0.9% IVPB SCH ×2 (09:51→21:16)
[2016-10-21] MEDS: ACETAZOLAMIDE IVPB SCH ×2 (09:51→21:16)
--- NOTE | 2016-10-21 10:47 | ECHO - Doppler Report ---
Echocardiogram Name: Angelique Atwood Date of Study: 10/20/2016 Date: 1965 Ht: 66.0 in Medical Record#: [id number] Age: 50 Wt: 160.0 lb Gender: Female BSA: 1.82 Order #: [id number] Location: [facility] Room #: 2N05 Reading Physician: Fady Betancourt DO, KLEVER CULP Machine Tool Technician Instructor: Gillian Herrera RDCS Ordering Physician: uQintin Bermeo CNP Primary Physician: None Indications: Dizziness Impressions: Sinus bradycardia. HR 40s. LVEF 60-65%. Normal LV chamber size, wall thickness and function. Normal left ventricular diastolic function. Right ventricle was not well visualized. Grossly, it appears to demonstrate normal function. No evidence of pulmonary hypertension. No significant valvular dysfunction. Left Ventricular Wall Motion: Rest Echo Findings All wall segments showed normal motion. Findings: Study Quality * Technically sub-optimal due to poor echocardiographic windows. Gastric views not well visualized. ECG Findings * Sinus bradycardia. HR 40s. Left Ventricle * LVEF 60-65%. * Normal LV chamber size, wall thickness and function. * Normal left ventricular diastolic function. Right Ventricle * Right ventricle was not well visualized. Grossly, it appears to demonstrate normal function. Left Atrium * Mildly dilated left atrium. Right Atrium * Mildly dilated right atrium. Interatrial Septum * Interatrial septum not well evaluated. Aortic Valve * Trileaflet aortic valve with normal function. * No aortic regurgitation. * No aortic stenosis. Mitral Valve * Normal mitral valve structure and function. * No mitral regurgitation. * No mitral stenosis. Tricuspid Valve * Normal tricuspid valve structure and function. * Trace tricuspid regurgitation. * No evidence of pulmonary hypertension. Pulmonic Valve * Pulmonic valve not well visualized. * No pulmonic regurgitation. Aorta * Normally sized aortic root. Pericardium * The pericardium appears normal. IVC * Normal IVC dimensions and inspiratory collapse. Pulmonary Artery * Normal visualized portions of the main pulmonary artery. History Hypertension 05/19/2013 a Previous Echo was performed. Measurements: BP: 120/ 81 2D Normal Values RVIDd: 3.00 cm <2.7 cm IVSd: .86 cm 0.6 - 1.0 cm LVIDd: 4.66 cm 3.7 - 5.6 cm LVPWd: 1.00 cm 0.6 - 1.1 cm LVIDs: 2.61 cm 1.5 - 3.6 cm AO: 2.40 cm < 4.0 cm LA: 3.80 cm 2.0 - 4.0cm %FS: 44.00 cm >25 % LA volume: 35 Mitral Valve Peak E:.95 m/sec Peak A:.63 m/sec E/A Ratio:1.5 Peak E' Lat Otoniel:13.5 cm/s Peak E' Med Otoniel:7.4 cm/s E/E' Lat Ratio:7 E/E' Med Ratio:12.8 Tricuspid Valve TV Regurg Peak Grad: 15.00mmHg TV Regurg Peak Otoniel: 1.94m/sec Updated by Fady Betancourt DO, FACEvan, KLEVER, RICARDO on 10/21/2016 10:40:19 AM electronically signed on 10/21/2016 10:41:20 AM with status of Final Wall Motion Franco: 1=Normal, 2=Hypokinesis, 3=Akinesis, 4=Dyskinesis, 5=Aneurysmal, 6=Hyperkinetic, X=Not Visualized (Blank)=Missing
--- NOTE | 2016-10-21 11:26 | Internal Med Progress Note ---
Date of Encounter: 10/21/16 Time of Encounter: 11:24 - Assessment and plan (1) UTI (urinary tract infection) Current Visit: Yes Status: Acute Assessment and plan: Patient is noted to have urinalysis suggestive of UTI, urine culture grows fluoroquinolone resistant Escherichia coli. Patient refuses to take oral antibiotics via her jejunostomy tube as she claims any medications make her nauseous and give her diarrhea. We will start IV cefazolin for 3 days. Patient may need arrangements for home IV antibiotic infusion. career services coordinator on board. Qualifiers: Urinary tract infection type: site unspecified Hematuria presence: without hematuria Qualified Code(s): N39.0 - Urinary tract infection, site not specified (2) Bradycardia Current Visit: Yes Status: Acute Assessment and plan: Asymptomatic bradycardia. Heart rate is in the range of high 40s to low 50s during this hospitalization. Cardiology follow-up appreciated. Echocardiogram reviewed, shows bradycardia with preserved ejection fraction, no valvular or other acute abnormalities. Cardiology signed off today, patient will need outpatient follow-up with no further inpatient cardiac testing. Continue telemetry monitoring. Clonidine dose has been decreased. Does not meet criteria for long QT syndrome, will monitor closely. (3) Seizure disorder Current Visit: Yes Status: Chronic (4) S/P jejunostomy Current Visit: Yes Status: Chronic Assessment and plan: Due to sphincter of Oddi dysfunction. Continue continuous tube feeds along with free water administration. Cannot tolerate oral diet or oral medications. Patient has been scheduled for colonoscopy as an outpatient, could not be done due to poor prep. GI has been consulted during this admission for possible colonoscopy, however patient is otherwise medically stable and since this procedure is not urgent, case discussed with GI, it has been decided to discharge patient to follow up for outpatient colonoscopy. This has been explained to the patient and she is currently in agreement. (5) GERD (gastroesophageal reflux disease) Current Visit: Yes Status: Chronic Qualifiers: Esophagitis presence: esophagitis presence not specified Qualified Code(s) : K21.9 - Gastro-esophageal reflux disease without esophagitis (6) Anxiety Current Visit: Yes Status: Chronic (7) HTN (hypertension) Current Visit: Yes Status: Chronic Assessment and plan: Blood pressure noted to be well controlled. Continue current medications. Qualifiers: Hypertension type: essential hypertension Qualified Code(s): I10 - Essential (primary) hypertension (8) Gastroparesis Current Visit: Yes Status: Chronic Assessment and plan: Noted to be on IV Phenergan and Zofran. We will limit these medications due to slightly prolonged QT. Monitor closely. (9) Sphincter of Oddi dysfunction Current Visit: Yes Status: Chronic - Subjective Interval history: Reports improved dizziness; also describes symptoms like vertigo at home, along with right ear tinnitus; no nausea, emesis, chest pain, dyspnea; - Constitutional Vitals: Temp Pulse Resp BP Pulse Ox 98.3 F 53 16 125/76 98 10/21/16 10:59 10/21/16 10:59 10/21/16 10:59 10/21/16 10:59 10/21/16 10:59 General appearance: Present: A&O X 3, answers questions appropriately - Respiratory Respiratory exam: Present: CTAB. Absent: accessory muscle use, rales, rhonchi, wheezes - Cardiovascular Cardiovascular exam: Present: bradycardia, RRR, +S1, +S2. Absent: diastolic murmur, gallop, rubs, systolic murmur - GI/Abdominal GI/Abdominal exam: Present: normal bowel sounds, soft (J-tube in LUQ, site not infected), no peritoneal signs. Absent: distended, tenderness - Extremities Exam Extremities exam: Present: full ROM, warm, radial pulses palpable and symetrical. Absent: calf tenderness, cyanotic, pedal edema - Neurological Exam Neurological exam: Present: CN II-XII intact, oriented X3, no focal deficits. Absent: pronater drift, facial droop, speech deficit Internal Medicine: Result - Labs CBC & Chem 7: 10/21/16 04:20 10/21/16 04:20 Labs: Short CBC 10/21/16 Range/Units 04:20 WBC 3.8 L (4.3-11.1) K/mcL Hgb 11.3 L (11.5-15.4) g/dL Hct 33.5 L (35.3-44.9) % Plt Count 201 (140-400) K/mcL Neutrophils # 1.2 L (1.6-8.9) K/mcL BMP 10/20/16 10/21/16 19:40 04:20 Sodium 138 Potassium 3.8 4.3 Chloride 110 H Carbon Dioxide 22 BUN 11 Creatinine 0.93 Glucose 106 H Calcium 8.8 Consult Discharge Plan - Plan Referrals: Sb Jacinto, SOUND TESTER [Advanced Practice Nurse] - 11/03/16 1:30 pm NO,PCP [Primary Care Provider] -
--- NOTE | 2016-10-21 11:29 | Gastroenterology Consult Note ---
<Jason Cassidy - Last Filed: 10/21/16 11:27> Date of Encounter: 10/21/16 Time of Encounter: 10:10 - Time Spent With Patient Total time spent is greater than 50% in coordination of care (as documented) at patient's floor/unit and/or counseling patient: GI History of Present Illness - Data of Consult Patient: known to practice within the last 3 years Consult date: 10/21/16 Requesting Physician: Leslie Martin MD - Consult Narrative Reason for consult: colonoscopy History of present illness: Ms. Atwood is a 50 year old female with PMHx of endometrial cancer, HTN, PAD, pseudotumor cerebri, GERD, sphincter of Oddi dysfunction, severe gastroparesis, DVT, CVA who was recently discharged for [facility] where she was being treated for bacteremia from a power port. She completed 2 weeks of antibiotics, and a PICC line was inserted. She developed left arm pain and was told she probably had a blood clot in her left arm. The patient was started on Lovenox at a different ER due to concerns of clot. We were consulted to complete colonoscopy that was ordered as an outpatient on 01/23/2016 for iron deficiency anemia with 2 day prep due to poor colon prep. Hgb at that time was 9.7. Iron profile and ferritin were ordered, but never completed. The patient has cancelled and rescheduled the appointment multiple times. Hgb on admission 12.1 and today Hgb 11.3. Procedures: Colonoscopy 01/17/2016 poor colon prep, stool in the entire examined colon. EGD 01/17/2016 normal NSAIDs: None Anticoagulation: None A/P SO: Patient with history of Sphincter of Oddi dysfunction s/p exploratory laparotomy, lysis of adhesions, Umm-en-Y hepaticojejunostomy. Most probably her anemia is due to Umm-en-Y surgery but will rule out other causes. EGD 2015 normal, but colonoscopy with poor prep. Need to complete 2 days of prep, with Nulytely day 1, and Miralax prep day 2. Clear liquid diet today and tomorrow, no red or purple. NPO at midnight, Thursday night. If not clear by 6 AM, give 2 tap water enemas. Gastroparesis: EGD in 2012 in [place] showed a large amount of food residue in the stomach. Patient unable to take Reglan d/t serious side effects. Patient had an NG tube placed for several months for medication to be given as she cannot tolerate oral. Gastric Emptying Scan, 03/2014, that showed 4 hour emptying of only 30%. Sphincter of Oddi dysfunction: s/p exploratory laparotomy, lysis of adhesions, intraoperative ultrasound, Umm-en-Y hepaticojejunostomy Past Med Surg Social Fam HX - Past Medical History Medical history: cancer, hypertension, peripheral artery disease, seizures, SVT , thyroid disease, other Psychiatric history: no psych history - Past Surgical History Surgical History: appendectomy, cholecystectomy, hysterectomy, other - Social History Smoking Status: Former smoker Smokeless Tobacco Status: Yes Alcohol use: none Drug use: none - Family History Mother Name: Nely Babcock Age: 71 Family Member Ethnicity: Non- Living Status: Still Living Hx Family Endocrine Disorder: Yes (DM II) Father Adopted: [place]: Isaac Babcock Age: 78 Family Member Ethnicity: Non- Living Status: Still Living Hx Family Cancer: Yes (Prostate ca) Hx Family Endocrine Disorder: Yes (DM II) - Gastrointestinal Gastrointestinal: Present: as per HPI - Constitutional Constitutional: as per HPI - EENT Eyes: as per HPI Ears: Present: as per HPI Nose, mouth and throat: Present: as per HPI - Cardiovascular Cardiovascular ROS: Present: as per HPI - Respiratory Respiratory IM: Present: as per HPI - Genitourinary Genitourinary: Absent: change in color, Urinary frequency - Neurological ROS Neurological GI: Present: as per HPI - Hematologic/Lymphatic Hematologic/Lymphatic pediatric: Present: as per HPI - Musculoskeletal Musculoskeletal ROS GI: Present: as per HPI - Integumentary Integumentary GI: Present: as per HPI - Psychiatric ROS Psychiatric GI: Present: as per HPI - Endocrine Endocrine IM: Present: as per HPI - Constitutional Vitals: Temp Pulse Resp BP Pulse Ox 98.3 F 53 16 125/76 98 10/21/16 10:59 10/21/16 10:59 10/21/16 10:59 10/21/16 10:59 10/21/16 10:59 General appearance: Present: cooperative, A&O X 3, no acute distress, answers questions appropriately - Head Head exam: Present: atraumatic, normocephalic - Eye Eye exam: Present: normal appearance, sclera anicteric - ENT ENT exam: Present: mucous membranes dry - Neck Neck exam general surgery: Present: normal inspection, trachea midline - Respiratory Respiratory exam: Present: CTAB. Absent: rales, rhonchi - Cardiovascular Cardiovascular exam: Present: RRR, +S1, +S2 - GI/Abdominal GI/Abdominal exam: Present: normal bowel sounds, soft, tenderness (surrounding J -tube insertion), no peritoneal signs Additional comments: J-tube in place - Rectal Rectal exam: Present: deferred - Extremities Exam Extremities exam: Present: warm - Neurological Exam Neurological exam: Present: no focal deficits - Psychiatric Psychiatric exam: Present: normal affect, normal mood - Skin Skin exam: Present: dry, intact, normal color, warm Results - Labs CBC & Chem 7: 10/21/16 04:20 10/21/16 04:20 Labs: Last Result Calcium 8.8 mg/dL (8.6-10.8) 10/21/16 04:20 Troponin I 0.00 ng/mL (0-0.03) 10/18/16 22:22 Entire Visit Hgb 11.3 g/dL (11.5-15.4) L 10/21/16 04:20 Hct 33.5 % (35.3-44.9) L 10/21/16 04:20 Total Bilirubin 0.2 mg/dL (0.2-1.2) 10/18/16 22:22 AST 32 Units/L (5-34) 10/18/16 22:22 ALT 31 Units/L (0-55) 10/18/16 22:22 Consult Discharge Plan - Plan Referrals: Sb Jacinto, VESSEL ENGINEER [Advanced Practice Nurse] - 11/03/16 1:30 pm NO,PCP [Primary Care Provider] - <Bianca Cruz - Last Filed: 10/22/16 08:30> Date of Encounter: 10/21/16 Time of Encounter: 13:00 - Time Spent With Patient Total time spent is greater than 50% in coordination of care (as documented) at patient's floor/unit and/or counseling patient: GI History of Present Illness - Data of Consult Requesting Physician: Leslie Martin MD - Consult Narrative History of present illness: Ms. Atwood is a 50 year old female - Constitutional Vitals: Temp Pulse Resp BP Pulse Ox 98.0 F 44 16 103/70 96 10/22/16 07:31 10/22/16 07:31 10/22/16 07:31 10/22/16 07:31 10/22/16 07:31 Results - Labs CBC & Chem 7: 10/21/16 04:20 10/22/16 04:15 Labs: Last Result Calcium 9.3 mg/dL (8.6-10.8) 10/22/16 04:15 Troponin I 0.00 ng/mL (0-0.03) 10/18/16 22:22 Entire Visit Hgb 11.3 g/dL (11.5-15.4) L 10/21/16 04:20 Hct 33.5 % (35.3-44.9) L 10/21/16 04:20 Total Bilirubin 0.2 mg/dL (0.2-1.2) 10/18/16 22:22 AST 32 Units/L (5-34) 10/18/16 22:22 ALT 31 Units/L (0-55) 10/18/16 22:22 - Attending Attestation I examined this patient and my medical decision-making was reviewed with the BUSINESS DIVISION CHAIR/PA/Advanced Practice Nurse/Resident Physician. I agree with the documented findings, disposition and treatment plan as described except to the extent set forth below.
[2016-10-21] MEDS: ceFAZolin 1,000 MG in D5% in Water (Mini-Bag+) 100 ML IVPB SCH ×2 (13:06→16:47)
--- NOTE | 2016-10-21 14:42 | Cardiology Progress Note ---
Date of Encounter: 10/21/16 Time of Encounter: 14:41 Assessment and Plan (1) Bradycardia Current Visit: Yes Status: Acute Sinus bradycardia Symptoms of presyncope have resolved. Ambulates without difficulty. Clonidine has been reduced here in the hospital HR has ranged from 44-56 during stay. BP is not markedly elevated. Cushings triad not present. TSH is low, which is opposite of what would be seen if bradycardia is from hypothyroidism Echo shows bradycardia without other abnormality. Currently asymptomatic, no current need for pacer. 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 All questions were answered. Thank you for involving us in the care of your patient. Please call with any questions. Subjective Principal diagnosis: Bradycardia Interval history: She reports resolution of her symptoms of pre-syncope. Her HR is not otherwise changed and is still in the mid 40's. Orthostatics yesterday were positive. Her magnesium and potassium were replaced yesterday and are normal today. She denies any new chest discomfort or dyspnea with exertion. Nursing notes she has no difficulty with ambulation. Spoke with the patient further regarding her "QT syndrome". She says it was mentioned to her in the ER at [facility] about 6 weeks ago. Has not seen cardiology about this issue and has not been told she needs to follow up. Objective Vital Signs, Last 4 Hours Temp Pulse Resp BP Pulse Ox 10/21/16 11:00 51 10/21/16 10:59 98.3 F 53 16 125/76 98 General: Conversant, No Apparent Distress HEENT: Mucus Membranes Moist Neck: No JVD Cardiac: Other (Bradycardia, normal S1 and S2) Lungs: Normal Breath Sounds, No Wheeze, Rales, Rhonchi Neuro: Alert and responsive, No focal deficits noted Abdomen: Soft Skin: No rashes noted on visualized skin Extremities: No Cyanosis, No Edema, Normal Pulses Results 10/21/16 04:20 10/21/16 04:20 Lab Results 10/20/16 10/21/1617 19:40 04:20 04:20 WBC 3.8 L Hgb 11.3 L Hct 33.5 L Plt Count 201 Sodium 138 Potassium 3.8 4.3 Chloride 110 H Carbon Dioxide 22 BUN 11 Creatinine 0.93 Glucose 106 H Calcium 8.8 Magnesium 1.9 2.6 Consult Discharge Plan - Plan Referrals: NO,PCP [Primary Care Provider] -
[2016-10-21] MEDS ORDERED: SODIUM CHLORIDE/NAHCO3/KCL/PEG 4,000 ML SOLN.RECON PO ONE (17:00)
[2016-10-22] MEDS: *HR* Morphine 2 MG/ML SYRINGE IVP PRN ×3 (00:19→10:21)
[2016-10-22] MEDS: ceFAZolin 1,000 MG in D5% in Water (Mini-Bag+) 100 ML IVPB SCH ×2 (00:19→12:04)
[2016-10-22] MEDS: *HR* Enoxaparin 40 MG/0.4 ML SYRINGE SQ SCH (04:25)
[2016-10-22 05:59] LABS: Calcium 9.3 mg/dL (8.6-10.8); Carbon Dioxide 24 mEq/L (19-29); Chloride 109 mEq/L (98-109); Glucose 93 mg/dL (70-99); Potassium 4.2 mEq/L (3.5-4.5); Sodium 139 mEq/L (136-145); eGFR For African Americans > 60 (> 60); eGFR For Non-African Americans 52 (> 60)
[2016-10-22 06:23] LABS: BUN/Creatinine Ratio 12 (6-26); Blood Urea Nitrogen 13 mg/dL (7-20); Osmolality,Calculated 288 (280-300)
--- NOTE | 2016-10-22 09:43 | Discharge Summary ---
Date of Encounter: 10/22/16 Time of Encounter: 09:40 - Discharge Diagnosis (1) UTI (urinary tract infection) Priority: Primary Status: Acute Qualifiers: Urinary tract infection type: site unspecified Hematuria presence: without hematuria Qualified Code(s): N39.0 - Urinary tract infection, site not specified (2) Bradycardia Priority: Primary Status: Acute (3) Seizure disorder Priority: Secondary Status: Chronic (4) S/P jejunostomy Priority: Secondary Status: Chronic (5) GERD (gastroesophageal reflux disease) Priority: Secondary Status: Chronic Qualifiers: Esophagitis presence: esophagitis presence not specified Qualified Code(s) : K21.9 - Gastro-esophageal reflux disease without esophagitis (6) Anxiety Priority: Secondary Status: Chronic (7) HTN (hypertension) Priority: Secondary Status: Chronic Qualifiers: Hypertension type: essential hypertension Qualified Code(s): I10 - Essential (primary) hypertension (8) Gastroparesis Priority: Secondary Status: Chronic (9) Sphincter of Oddi dysfunction Priority: Secondary Status: Chronic - Discharge Medications Prescriptions: CeFAZolin [Ancef] 1,000 mg IVPB Q12H #3 vial Home Medications: AcetaZOLAMIDE [Diamox Sequels] 500 mg IV Q12H 30 Days 11/05/15 [Rx] DiphenhydraMINE [Benadryl] 50 mg IV Q6H 30 Days 11/28/15 [Rx] Pantoprazole Sodium [Protonix IV] 40 mg IV DAILY 30 Days 11/28/15 [Rx] Levothyroxine Sodium [Synthroid] 100 mcg IV DAILY 01/17/16 [History] CloNIDine Patch [Catapres-Tts] 0.3 mg TD QWEEK #6 patch.tdwk 01/30/16 [Rx] Lovenox *PHARMACY WT BASED* 10/19/16 [History] CeFAZolin [Ancef] 1,000 mg IVPB Q12H #3 vial 10/22/16 [Rx] Allergies/Adverse Reactions: Allergies levofloxacin Allergy (Intermediate, Verified 10/19/16 12:43) rash, itching, redness ceftriaxone [From Rocephin] Allergy (Verified 10/19/16 12:43) Anaphylaxis Hydralazine Allergy (Verified 10/19/16 12:43) Hives Iodinated Contrast Media - Oral and [Iodinated Contrast Media - IV Dye] Allergy (Verified 10/19/16 12:43) Hives ketorolac [From Toradol] Allergy (Verified 10/19/16 12:43) Gastrointestinal Upset metoclopramide [From Reglan] Allergy (Verified 10/19/16 12:43) Hives midazolam [From Versed] Allergy (Verified 10/19/16 12:43) Agitated piperacillin [From Zosyn] Allergy (Verified 10/19/16 12:43) Rash povidone-iodine [From Betadine] Allergy (Verified 10/19/16 12:43) Hives prochlorperazine [From Compazine] Allergy (Verified 10/19/16 12:43) Hives soap [From Betadine] Allergy (Verified 10/19/16 12:43) Hives tazobactam [From Zosyn] Allergy (Verified 10/19/16 12:43) Rash Trimethobenzamide [From Tigan] Allergy (Verified 10/19/16 12:43) Hives Procedures/tests Complete & Pending: Procedures Performed prior 72 hours Category Date Time Status ECG 12 lead ECG [ECG] Routine Y 10/20/16 10:07 Completed ECG 12 lead ECG [ECG] Routine Y 10/21/16 14:42 Ordered EV echocardiogram Routine Y 10/20/16 12:24 Completed Date of admission: 10/19/16 00:01 Primary care physician: PCP NO Consults: 10/19/16 00:37 Consult to Nutrition [CONS] Routine Comment: Consulting Provider: NUTRITION Reason for Dietary Consult: TF Start and Manage 10/19/16 01:09 Consult to Nutrition [CONS] Routine Comment: enteral feedings Consulting Provider: NUTRITION Reason for Dietary Consult: TF Start and Manage 10/20/16 07:14 Consult to Cardiology [CONS] Routine Comment: Consulting Provider: Cardiology Analia Reason for Consult: bradycardia Call Completed: No 10/20/16 14:00 Consult to Gastroenterology [CONS] Routine Consulting Provider: Gastroenterology Analia Reason for Consult: RE colonoscopy Call Completed: No Discharging clinician: Leslie Martin Anticipated date of discharge: 10/22/16 - Patient Status Disposition: Home Health Service Condition: Fair Functional capacity at discharge: independent ambulation Overall status at discharge: patient is progressing back to baseline - Discharge Instructions Instructions: Cefazolin (Injection), Urinary Tract Infection in Women (DC), Peripherally Inserted Central Catheters and Midline Catheters (DC), Sepsis (DC) , Tube Feeding (DC) Follow Up With: HOLLI ROMERO [Other] - 10/27/16 10:45 am Sb Jacinto CNP [Advanced Practice Nurse] - 11/03/16 1:30 pm NO,PCP [Primary Care Provider] - Additional Instructions: F/up with PCP in 1-2 weeks - Diet and Activity Activity: resume usual activities as tolerated Diet: other (tube feeds via jejunostomy tube) Hospital course: Ms. Atwood is a 50 year old female with the above chronic medical problems, initially admitted with generalized weakness and dizziness and was noted to have sinus bradycardia. Initial labs have been within normal limits. Thyroid- stimulating hormone was noted to be low, not consistent with bradycardia. Echocardiogram showed bradycardia, preserved ejection fraction and no gross valvular or other acute abnormalities. Cardiology has been consulted and recommended no further inpatient workup. Patient was noted to have slight prolongation of QT but does not meet criteria for long QT syndrome. Telemetry monitoring during this hospitalization has showed sinus bradycardia with heart rate in high 40s to low 50s and patient remained asymptomatic. Patient was noted to have inadequate nutrition via jejunostomy every feeding and she was seen by dietitians and it was explained to her multiple times that she needed to increase her rate of tube feeds, however patient does have underlying mood and behavioral disorders and is fixated on her current management and is reluctant to change. She was noted to have asymptomatic UTI and urine culture grows Escherichia coli and patient refuses to take enteral antibiotics as she insists that she does not use any pills through her jejunostomy tube for fear of clogging up the tube. Hence, she is being discharged on a three-day course of IV cefazolin. Home health services referral has been completed. Patient is medically stable for discharge. - Time Spent with Patient Total time spent providing and/or coordinating discharge services: Greater than 30 minutes (50 min) - Constitutional Vitals: Temp Pulse Resp BP Pulse Ox 98.0 F 44 16 103/70 96 10/22/16 07:31 10/22/16 07:31 10/22/16 07:31 10/22/16 07:31 10/22/16 07:31 General appearance: Present: A&O X 3, answers questions appropriately - Respiratory Respiratory exam: Present: CTAB. Absent: accessory muscle use, rales, rhonchi, wheezes - Cardiovascular Cardiovascular exam: Present: bradycardia, RRR, +S1, +S2. Absent: diastolic murmur, gallop, rubs, systolic murmur
--- NOTE | 2016-10-22 09:47 | Physician Discharge Referral ---
Home Health/Hosp Referral Info Transfer to: Home Health Attending Provider: Leslie Martin Provider in Charge Post Discharge: PCP - Diagnosis (1) UTI (urinary tract infection) Priority: Primary Status: Acute (2) Bradycardia Priority: Primary Status: Acute (3) Seizure disorder Priority: Secondary Status: Chronic (4) S/P jejunostomy Priority: Secondary Status: Chronic (5) GERD (gastroesophageal reflux disease) Priority: Secondary Status: Chronic (6) Anxiety Priority: Secondary Status: Chronic (7) HTN (hypertension) Priority: Secondary Status: Chronic (8) Gastroparesis Priority: Secondary Status: Chronic (9) Sphincter of Oddi dysfunction Priority: Secondary Status: Chronic - Respiratory Orders Smoking Cessation: Smoking cessation has been advised. For more information, call the [employer] Quit Line at 0-801-SNCJNOW. - Activity Activity Orders: Ambulate - Services Needed Following services are medically necessary services: Nursing, Home Infusion Home Care Orders: Continuous tube feeds via jejunostomy tube, with Osmolyte at 30ml/hr; Iron Miner recommendations are to increase at least to 50ml/hr to meet goal calorie requirements; IV antibiotic infusion Cefazolin 1g [id number] for 3 doses - Transfer Medications Prescriptions: CeFAZolin [Ancef] 1,000 mg IVPB Q12H #3 vial Home Medications: AcetaZOLAMIDE [Diamox Sequels] 500 mg IV Q12H 30 Days 11/05/15 [Rx] DiphenhydraMINE [Benadryl] 50 mg IV Q6H 30 Days 11/28/15 [Rx] Pantoprazole Sodium [Protonix IV] 40 mg IV DAILY 30 Days 11/28/15 [Rx] Levothyroxine Sodium [Synthroid] 100 mcg IV DAILY 01/17/16 [History] CloNIDine Patch [Catapres-Tts] 0.3 mg TD QWEEK #6 patch.tdwk 01/30/16 [Rx] Lovenox *PHARMACY WT BASED* 10/19/16 [History] CeFAZolin [Ancef] 1,000 mg IVPB Q12H #3 vial 10/22/16 [Rx] Allergies/Adverse Reactions: Allergies levofloxacin Allergy (Intermediate, Verified 10/19/16 12:43) rash, itching, redness ceftriaxone [From Rocephin] Allergy (Verified 10/19/16 12:43) Anaphylaxis Hydralazine Allergy (Verified 10/19/16 12:43) Hives Iodinated Contrast Media - Oral and [Iodinated Contrast Media - IV Dye] Allergy (Verified 10/19/16 12:43) Hives ketorolac [From Toradol] Allergy (Verified 10/19/16 12:43) Gastrointestinal Upset metoclopramide [From Reglan] Allergy (Verified 10/19/16 12:43) Hives midazolam [From Versed] Allergy (Verified 10/19/16 12:43) Agitated piperacillin [From Zosyn] Allergy (Verified 10/19/16 12:43) Rash povidone-iodine [From Betadine] Allergy (Verified 10/19/16 12:43) Hives prochlorperazine [From Compazine] Allergy (Verified 10/19/16 12:43) Hives soap [From Betadine] Allergy (Verified 10/19/16 12:43) Hives tazobactam [From Zosyn] Allergy (Verified 10/19/16 12:43) Rash Trimethobenzamide [From Tigan] Allergy (Verified 10/19/16 12:43) Hives Certification: Further, I certify that my clinical findings support that this patient is homebound (i.e. absences from home require considerable and taxing effort and are for medical reasons or zoroastrianism services or infrequently or short duration when for other reasons) because: Homebound Reason: Leaving home requires considerable and taxing effort due to condition Attestation: My signature below is to certify that this patient is under my care and that I, or nurse practitioner, or a physician's surgical supply assistant working with me, has a face-to -face encounter with this patient.
[2016-10-22] MEDS: Levothyroxine Sodium 100 MCG VIAL IV SCH (10:20)
[2016-10-22] MEDS: Pantoprazole 40 MG VIAL IVP SCH (10:20)
[2016-10-22] MEDS: ACETAZOLAMIDE IVPB SCH (10:21)
[2016-10-22] MEDS: SODIUM CHLORIDE 0.9% IVPB SCH (10:21)
[2016-10-22 11:42] VITALS: BP 116/73
--- NOTE | 2016-10-22 12:25 | Electrocardiograph Report ---
[place] [id number] Test Date: 2016-10-21 Pat Name: Angelique Atwood Department: 110 Room: 2N05 Gender: F Service Attendant: : 1965 Requested By: Hakeem Green Order Number: [id number] Reading MD: Jef Conteh MD Measurements Intervals [place] Rate: 50 P: 28 ME: 169 QRS: -5 QRSD: 85 T: -3 QT: 510 QTc: 483 Interpretive Statements SINUS BRADYCARDIA Poor R wave progression Electronically Signed On 10-22-2016 12:23:32 EDT by Jef Conteh MD
[2016-10-22] MEDS ORDERED: Polyethylene Glycol 3350 255 GM POWDER PO ONE (17:00)
--- NOTE | 2016-10-23 11:25 | Electrocardiograph Report ---
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
== END 2016-10-22 14:52 | disposition home health service (06) ==
LOC: 2NNU 20:37 → EMEROO 20:37 → SUATTDRO 10-19 00:01 → 2NNU 10-19 00:12
PROVIDERS: ADMIT Internal Medicine; ATTEND Internal Medicine